=== PATIENT | female | born 1935 | race Caucasian/White ===

== ENCOUNTER 2022-06-19 13:25 | Inpatient (IN) ==
--- NOTE | 2022-06-19 15:10 | XRay Report ---
HISTORY: Short of breath, hypoxia FINDINGS: There are subtle alveolar opacities in both lung bases. These are new since 01/22/22. Mid and upper lung busch are clear. There is no pleural effusion and no evidence of emphysema. The heart size and pulmonary vasculature are normal. IMPRESSION: Subtle bibasilar pneumonia Interpreted and Authenticated by: Yordan Bae 06/19/22
[2022-06-19] MEDS ORDERED: cefTRIAXone 1 GM VIAL IV ONE (15:12)
[2022-06-19 15:16] LABS: POC Calcium, Ionized 1.07 (1.16-1.32); POC Creatinine 1.3 (0.6-1.2)
--- NOTE | 2022-06-19 15:19 | Emergency Department Note ---
HPI General Chief complaint: Cold/Flu Symptoms Stated complaint: SOB Time Seen by Provider: 06/19/22 13:42 Source: patient Mode of arrival: wheelchair Limitations: no limitations History of Present Illness HPI Narrative: 87-year-old female with history of CAD, hypertension, hyperlipidemia, polymyalgia rheumatica patient presents to the ER with hypoxia satting 84% on room air and complaints of URI with cough that started on Lynne giuliano. The patient is not on oxygen at home. She is had poor oral intake and poor appetite since she got sick. She's has also had diarrhea that preceded her URI by about a week. She denies melena or hematochezia. She denies nausea and vomiting. Denies dysuria or hematuria. She denies increasing lower extremity swelling or unintentional weight gain. COVID and influenza swabs are negative today. Related Data Home Medications Medication Instructions Recorded Confirmed amlodipine 10 mg tablet 10 mg PO DAILY 05/31/15 06/05/22 aspirin 81 mg chewable tablet 81 mg PO DAILY 05/31/15 06/05/22 ascorbic acid (vitamin C) 500 mg 500 mg PO QDAY 06/23/15 06/05/22 tablet calcium carbonate 500 mg calcium 500 - 1,000 mg PO HSP PRN Heartburn 06/23/15 06/05/22 (1,250 mg) tablet cholecalciferol (vitamin D3) 25 1,000 unit PO QDAY 06/23/15 06/05/22 mcg (1,000 unit) capsule cyanocobalamin (vitamin B-12) 500 500 mcg PO QDAY 06/23/15 06/05/22 mcg tablet omega-3 fatty acids 1,000 mg 1,000 mg PO QDAY 06/23/15 06/05/22 capsule acetaminophen 650 mg 650 - 1,300 mg PO BIDP PRN Pain 12/31/17 06/05/22 tablet,extended release coenzyme Q10 100 mg capsule 100 mg PO DAILY 12/31/17 06/05/22 pravastatin 10 mg tablet 10 mg PO HS 12/31/17 06/05/22 atenolol 25 mg tablet 25 mg PO QDAY 12/02/18 06/05/22 spironolactone 25 mg tablet 25 mg PO QDAY 07/26/20 06/05/22 Previous Rx's Medication Instructions Recorded folic acid 1 mg tablet 1 mg PO QDAY #30 tabs 12/02/18 hydrocodone 7.5 mg-acetaminophen 1 tab PO BID PRN pain #60 tabs 06/06/22 325 mg tablet Allergies Allergy/AdvReac Type Severity Reaction Status Date / Time Doxepin Allergy Severe Swelling Verified 06/19/22 13:32 of Lip/Tongue/Throat Quinolones Allergy Unknown UNKNOWN Verified 06/19/22 13:32 morphine AdvReac Mild Vomiting Verified 06/19/22 13:32 Warfarin [From COUMADIN] AdvReac Mild Nausea Verified 06/19/22 13:32 ADHESIVES Allergy Mild RASH Uncoded 06/05/22 13:36 Review of Systems ROS ROS Narrative: Narrative: All systems ED: reviewed and negative except as stated. [facility] Narrative Patient History Narrative: Narrative: Medical/Surgical/Family History All Active Problems (Updated 06/19/22 @ 16:59 by Lulú Vega PA-C) Cellulitis (Chronic) Abnormal weight loss (Chronic) Anemia (Acute) Arthritis (Chronic) Benign essential hypertension (Chronic) Disorder of bone (Chronic) Disorder of cartilage (Chronic) CAD (coronary artery disease) (Chronic) Changes in skin texture (Chronic) Costalchondritis (Chronic) Difficulty swallowing (Chronic) Dysmetabolic syndrome X (Chronic) Dyspepsia (Chronic) Edema (Chronic) Elevated fasting glucose (Chronic) Long-term use of high-risk medication (Chronic) Enthesopathy (Chronic) Epigastric pain (Chronic) Fatigue (Chronic) Hyperlipidemia (Chronic) Pain of left leg (Chronic) Left wrist sprain (Chronic) Nontoxic multinodular goiter (Chronic) Polymyalgia rheumatica (Chronic) Pyuria (Chronic) Steroid long-term use (Chronic) Varicose veins of legs (Chronic) Visit for screening mammogram (Chronic) Inflammatory arthritis (Chronic) Dactylitis (Chronic) Encounter for long-term (current) use of other high-risk medications (Chronic) Encounter for long-term current use of other high-risk medications (Chronic) 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) Elevated rheumatoid factor (Acute) Trigger middle finger of right hand (Acute) Polyarthralgia (Chronic) Right shoulder pain (Acute) Sinusitis, acute (Acute) Chronic sacroiliac joint pain (Chronic) Sacroiliitis, not elsewhere classified (Chronic) Radiculopathy, lumbar region (Chronic) Other spondylosis with radiculopathy, lumbar region (Chronic) Heart disease (Chronic) HTN (hypertension) (Chronic) Left shoulder pain (Chronic) Low back pain (Acute) Chronic right SI joint pain (Acute) Community acquired pneumonia (Acute) Acute respiratory insufficiency (Acute) Medical History Abnormal weight loss Anemia Arthritis Benign essential hypertension CAD (coronary artery disease) Cellulitis Changes in skin texture Chronic right SI joint pain Chronic sacroiliac joint pain Costalchondritis Dactylitis Difficulty swallowing Disorder of bone Disorder of cartilage Dysmetabolic syndrome X Dyspepsia Edema Elevated fasting glucose Elevated rheumatoid factor Encounter for long-term (current) use of other high-risk medications Encounter for long-term current use of other high-risk medications Enthesopathy Epigastric pain Fatigue Heart disease HTN (hypertension) Human leukocyte antigen B27 positive Hyperlipidemia Inflammatory arthritis Left shoulder pain Left wrist sprain Long-term use of high-risk medication Low back pain Nontoxic multinodular goiter Other spondylosis with radiculopathy, lumbar region Pain of left leg Polyarthralgia Polymyalgia rheumatica Pyuria Radiculopathy, lumbar region Right shoulder pain Sacroiliitis, not elsewhere classified Spondyloarthropathy Steroid long-term use Trigger middle finger of right hand Varicose veins of legs Visit for screening mammogram Surgical History History of surgery 09/09 SI Joint Injection, left w/o sed 09/04/1809/09 Shoulder Joint Injection, rt w/o sed 09/04/1807/12 LESI #1 L4-5 w/o sed 07/08/1810/07 LESI #1 L4-5 w/o sed 10/11/1507/08 SI Joint Injection, Bilat w/o sed 07/22/201404/06 SI Joint Injection, Bilat w/o sed 03/30/201404/06 Knee Joint Injection, Left w/o sed 03/30/201412/05 Knee Joint Injection, Left w/o sed 12/01/201312/05 SI Joint Injection, Bilat w/o sed 12/01/201310/05 Knee Joint Injection, left w/o sed 09/28/201310/05 SI Joint Injection bilat w/o sed 09/28/201310/04 SI Joint Injection - Bilateral w/o sed 10/15/201210/04 Knee Joint Injection w/o sed 09/29/1210/04 SI Joint Injection Bilat w/o sed 09/29/1212/03 Knee Joint Injection Left w/o sed 11-28-1112/03 SI Joint Injection Left w/o sed 11-28-1101/01 Facet injection, Left side L4-5 and L5-S1 w/out sed 01/11/1101/01 SI Joint Injection-left 12/28/10 w/o sed Social History Smoking Status: Never smoker Alcohol Intake Frequency: does not drink Substance Use: does not use Exam Narrative Narrative: General: AOx3, NAD, nontoxic appearing. Pleasant and conversant. HEENT: PERRL, EOMI, normocephalic. Moist mucous membranes. Normal facies and normal dentition. Chest: Symmetric, no pain to palpation Respiratory: Bilateral coarse crackles at the bases. No respiratory distress. Unlabored breathing. Audible cough. Heart: Regular rate and rhythm, no murmurs/clicks/rubs. Abdomen: Non-tender, Non distended, normal bowel tones. No organomegaly. Extremities: Warm and well perfused. No edema. DP 2+ bilaterally. No venous stasis. Neuro: No focal deficits. Cranial nerves II-XII grossly normal. Skin: Warm dry, no rashes or lesions, no cyanosis. Psych: Normal mood and affect Heme/Lymph: No abnormal bruising General Limitations: no limitations Course Course Course Narrative: 87-year-old female presents the ER with hypoxia and URI with cough Reevaluation(s) Reevaluation #1: COVID and influenza swabs are negative, check chest x-ray Obtain IV access and plan to start ceftriaxone/azithromycin if chest x-ray significant for pneumonia Obtain basic lab Reevaluation #2: CBC with white blood cell count of 15,600 with left shift Chemistry with hyponatremia sodium of 131, creatinine is 1.3 with a BUN 30 BNP is 1600 Vital Signs Vital signs: Vital Signs Temperature 97.1 F 06/19/22 13:28 Pulse Rate 69 06/19/22 13:28 Respiratory Rate 22 06/19/22 13:28 Blood Pressure 112/56 06/19/22 13:28 Pulse Oximetry (%) 85 L 06/19/22 13:28 Oxygen Delivery Method 06/19/22 13:28 Temperature 97.1 F 06/19/22 13:28 Pulse Rate 66 06/19/22 16:31 Respiratory Rate 22 06/19/22 13:28 Blood Pressure 125/53 06/19/22 16:31 Pulse Oximetry (%) 95 06/19/22 16:31 Oxygen Delivery Method 06/19/22 16:31 Oxygen Flow Rate (L/min) 2 06/19/22 16:31 MDM MDM Narrative Medical decision making narrative: Community-acquired pneumonia Hypoxic respiratory insufficiency IV ceftriaxone and oral 500 mg azithromycin has been started. Patient will need admission and she has been accepted by the hospitalist. Please see his note for further details. Lab Data Result diagrams: 06/19/22 15:24 Labs: Lab Results 06/19/22 06/19/22 06/19/22 Range/Units 15:13 15:24 15:24 WBC 15.6 H (4.5-11.0) K/mcL RBC 3.63 (3.59-5.38) M/mcL Hgb 10.7 L (11.2-15.7) g/dL Hct 33.1 L (34.1-44.9) % POC Hct 32.0 L (36-48) MCV 91.2 (80.0-100.0) fL MCH 29.5 (26.0-34.0) pg MCHC 32.3 (31.0-36.0) g/dL RDW 13.8 (11.5-14.5) % Plt Count 132 L (140-440) K/mcL MPV 10.7 (8.8-12.5) fL Immature Gran % (Auto) 0.6 H (0.0-0.5) % Neut % (Auto) 70.9 (38.0-78.0) % Lymph % (Auto) 20.8 (15.5-49.0) % [place] % (Auto) 7.6 (1.0-12.0) % Eos % (Auto) 0 (0.0-7.0) % Baso % (Auto) 0.1 (0.0-2.0) % Lymph # (Auto) 3.25 (1.50-4.80) K/mcL [place] # (Auto) 1.18 H (0.10-0.90) K/mcL Eos # (Auto) 0 (0.00-0.70) K/mcL Baso # (Auto) 0.02 (0.00-0.30) K/mcL Immature Gran # 0.10 H (0.00-0.05) K/mcl Absolute Neutrophils 11.04 H (1.80-8.00) K/mcL POC Sodium 131 L (133-145) POC Potassium 4.0 (3.3-5.1) POC Chloride 97 (96-108) POC Total CO2 27.0 (22-30) POC BUN 30 H (6-20) POC Creatinine 1.3 H (0.6-1.2) POC Glucose 93 (70-105) POC WB Ioniz Calcium 1.07 L (1.16-1.32) NT-Pro-B Natriuret Pep 1600.0 H (<450.0) pg/mL ED POC Tests ED POC Tests: SANAZ - Influenza A Negative SANAZ - Influenza B Negative SANAZ - SARS Antigen Negative Discharge Plan Patient/Caregiver Discharge Instructions Pt seen by PERSONNEL SCHEDULER/PA only: Yes Clinical Impression: Community acquired pneumonia, Acute respiratory insufficiency Patient Disposition: Xfer As Inpt ([facility] Follow up with: Patricia Marie DNP [Primary Care Provider] - Prescriptions: No Action omega-3 fatty acids 1,000 mg capsule 1,000 mg PO QDAY Label Comments: HOLDING FOR SURGERY cyanocobalamin (vitamin B-12) 500 mcg tablet 500 mcg PO QDAY calcium carbonate 500 mg calcium (1,250 mg) tablet 500 - 1,000 mg PO HSP PRN (Reason: Heartburn) ascorbic acid (vitamin C) 500 mg tablet 500 mg PO QDAY cholecalciferol (vitamin D3) 1,000 unit capsule 1,000 unit PO QDAY atenolol 25 mg tablet 25 mg PO QDAY folic acid 1 mg tablet 1 mg PO QDAY Qty: 30 2RF Rx Instructions: Take 1 tablet daily spironolactone 25 mg tablet 25 mg PO QDAY hydrocodone-acetaminophen 7.5-325 mg tablet 1 tab PO BID PRN (Reason: pain) Qty: 60 0RF amlodipine 10 MG tablet 10 mg PO DAILY aspirin 81 MG tablet,chewable 81 mg PO DAILY Label Comments: HOLDING FOR SURGERY pravastatin 10 MG tablet 10 mg PO HS acetaminophen 650 MG tablet extended release 650 - 1,300 mg PO BIDP PRN (Reason: Pain) coenzyme Q10 100 MG capsule 100 mg PO DAILY Label Comments: HOLDING FOR SURGERY
[2022-06-19] MEDS ORDERED: AZITHROMYCIN 250 MG TABLET PO ONE (15:27)
[2022-06-19 16:08] LABS: Basophils # (Auto) 0.02 K/mcL (0.00-0.30); Basophils % (Auto) 0.1 % (0.0-2.0); Eosinophils # (Auto) 0 K/mcL (0.00-0.70); Eosinophils % (Auto) 0 % (0.0-7.0); Hematocrit 33.1 % (34.1-44.9); Hemoglobin 10.7 g/dL (11.2-15.7); Lymphocytes # (Auto) 3.25 K/mcL (1.50-4.80); Lymphocytes % (Auto) 20.8 % (15.5-49.0); Mean Cell Volume 91.2 fL (80.0-100.0); Mean Corpuscular HGB Conc 32.3 g/dL (31.0-36.0); Mean Platelet Volume 10.7 fL (8.8-12.5); Monocytes # (Auto) 1.18 K/mcL (0.10-0.90); Monocytes % (Auto) 7.6 % (1.0-12.0); Neutrophils % (Auto) 70.9 % (38.0-78.0); Platelet Count 132 K/mcL (140-440); RBC 3.63 M/mcL (3.59-5.38); Red Cell Distribution Width 13.8 % (11.5-14.5); WBC 15.6 K/mcL (4.5-11.0)
--- NOTE | 2022-06-19 16:41 | Internal Med History&Physical ---
HPI History of Present Illness Patient information: Note initiated : 06/19/22 at 4:37 pm Service Date, if different from initiated Date: [] Patient: Manuela Bower 87 y/o F admitted on for Shortness of breath. Chief Complaint: [] Chief complaint: cough History of present illness: Ms. Bower is a 87 year old F PMH, ARthritis, on remicaide presents to the ER for evaluation of cough Pt has been having cough x 5-6 days, dry, progressively getting wrose, associated with subjective sensation of chills, she had malaise and diarrhea associated with these symptoms. Her symptoms have progressively gotten worse hence she came to the ER for furtehr eval ON arrival to the ER she is hemodynamically stable, but needs 2 L oxygen to keep sat > 90, labs show leucocytosis and creat of 1.3, X ray confimrs pna, covid/flu is negative. patient is going to be admitted to the hospital for further management. Review of Systems Review of systems: CONSTITUTIONAL: No weight loss, fever, present chills, weakness or fatigue. HEENT: Eyes: No visual loss, blurred vision, double vision or yellow sclerae. Ears, Nose, Throat: No hearing loss, sneezing, congestion, runny nose or sore throat. SKIN: No rash or itching. CARDIOVASCULAR: No chest pain, chest pressure or chest discomfort. No palpitations or edema. RESPIRATORY: present cough, shortness of breath GASTROINTESTINAL: No nausea, vomiting or or constipation. No abdominal pain or blood in stools No Janet. had diarrhea, which is now resolved GENITOURINARY: Denies Burning on urination. Blood in urine, or foul smelling urine NEUROLOGICAL: No headache, dizziness, syncope, paralysis, tremors, numbness or tingling in the extremities. No change in bowel or bladder control. MUSCULOSKELETAL: No muscle, back pain, joint pain or stiffness. HEMATOLOGIC: No bleeding or bruising. No enlarged nodes PSYCHIATRIC: No depression or anxiety. ENDOCRINOLOGIC: No reports of sweating, cold or heat intolerance. No polyuria or polydipsia. ALLERGIES: No hives, eczema or rhinitis. Skin: No rash, no jaundice, cyanosis or pallor. PFSH PFSH All Active Problems Cellulitis (Chronic) Abnormal weight loss (Chronic) Anemia (Acute) Arthritis (Chronic) Benign essential hypertension (Chronic) Disorder of bone (Chronic) Disorder of cartilage (Chronic) CAD (coronary artery disease) (Chronic) Changes in skin texture (Chronic) Costalchondritis (Chronic) Difficulty swallowing (Chronic) Dysmetabolic syndrome X (Chronic) Dyspepsia (Chronic) Edema (Chronic) Elevated fasting glucose (Chronic) Long-term use of high-risk medication (Chronic) Enthesopathy (Chronic) Epigastric pain (Chronic) Fatigue (Chronic) Hyperlipidemia (Chronic) Pain of left leg (Chronic) Left wrist sprain (Chronic) Nontoxic multinodular goiter (Chronic) Polymyalgia rheumatica (Chronic) Pyuria (Chronic) Steroid long-term use (Chronic) Varicose veins of legs (Chronic) Visit for screening mammogram (Chronic) Inflammatory arthritis (Chronic) Dactylitis (Chronic) Encounter for long-term (current) use of other high-risk medications (Chronic) Encounter for long-term current use of other high-risk medications (Chronic) 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) Elevated rheumatoid factor (Acute) Trigger middle finger of right hand (Acute) Polyarthralgia (Chronic) Right shoulder pain (Acute) Sinusitis, acute (Acute) Chronic sacroiliac joint pain (Chronic) Sacroiliitis, not elsewhere classified (Chronic) Radiculopathy, lumbar region (Chronic) Other spondylosis with radiculopathy, lumbar region (Chronic) Heart disease (Chronic) HTN (hypertension) (Chronic) Left shoulder pain (Chronic) Low back pain (Acute) Chronic right SI joint pain (Acute) Medical History Abnormal weight loss Anemia Arthritis Benign essential hypertension CAD (coronary artery disease) Cellulitis Changes in skin texture Chronic right SI joint pain Chronic sacroiliac joint pain Costalchondritis Dactylitis Difficulty swallowing Disorder of bone Disorder of cartilage Dysmetabolic syndrome X Dyspepsia Edema Elevated fasting glucose Elevated rheumatoid factor Encounter for long-term (current) use of other high-risk medications Encounter for long-term current use of other high-risk medications Enthesopathy Epigastric pain Fatigue Heart disease HTN (hypertension) Human leukocyte antigen B27 positive Hyperlipidemia Inflammatory arthritis Left shoulder pain Left wrist sprain Long-term use of high-risk medication Low back pain Nontoxic multinodular goiter Other spondylosis with radiculopathy, lumbar region Pain of left leg Polyarthralgia Polymyalgia rheumatica Pyuria Radiculopathy, lumbar region Right shoulder pain Sacroiliitis, not elsewhere classified Spondyloarthropathy Steroid long-term use Trigger middle finger of right hand Varicose veins of legs Visit for screening mammogram Surgical History History of surgery 09/09 SI Joint Injection, left w/o sed 09/04/1809/09 Shoulder Joint Injection, rt w/o sed 09/04/1807/12 LESI #1 L4-5 w/o sed 07/08/1810/07 LESI #1 L4-5 w/o sed 10/11/1507/08 SI Joint Injection, Bilat w/o sed 07/22/201404/06 SI Joint Injection, Bilat w/o sed 03/30/201404/06 Knee Joint Injection, Left w/o sed 03/30/201412/05 Knee Joint Injection, Left w/o sed 12/01/201312/05 SI Joint Injection, Bilat w/o sed 12/01/201310/05 Knee Joint Injection, left w/o sed 09/28/201310/05 SI Joint Injection bilat w/o sed 09/28/201310/04 SI Joint Injection - Bilateral w/o sed 10/15/201210/04 Knee Joint Injection w/o sed 09/29/1210/04 SI Joint Injection Bilat w/o sed 09/29/1212/03 Knee Joint Injection Left w/o sed 11-28-1112/03 SI Joint Injection Left w/o sed 11-28-1101/01 Facet injection, Left side L4-5 and L5-S1 w/out sed 01/11/1101/01 SI Joint Injection-left 12/28/10 w/o sed Social History household members: alone housing: house lives independently: Yes occupational status: retired smoking status: Never smoker alcohol intake frequency: does not drink substance use type: does not use MEDS/ALLERGIES Home Medications and Allergies Home Medications Medication Instructions Recorded Confirmed Type amlodipine 10 mg tablet 10 mg PO DAILY 05/31/15 06/05/22 History aspirin 81 mg chewable tablet 81 mg PO DAILY 05/31/15 06/05/22 History ascorbic acid (vitamin C) 500 mg 500 mg PO QDAY 06/23/15 06/05/22 History tablet calcium carbonate 500 mg calcium 500 - 1,000 mg PO HSP PRN Heartburn 06/23/15 06/05/22 History (1,250 mg) tablet cholecalciferol (vitamin D3) 25 1,000 unit PO QDAY 06/23/15 06/05/22 History mcg (1,000 unit) capsule cyanocobalamin (vitamin B-12) 500 500 mcg PO QDAY 06/23/15 06/05/22 History mcg tablet omega-3 fatty acids 1,000 mg 1,000 mg PO QDAY 06/23/15 06/05/22 History capsule acetaminophen 650 mg 650 - 1,300 mg PO BIDP PRN Pain 12/31/17 06/05/22 History tablet,extended release coenzyme Q10 100 mg capsule 100 mg PO DAILY 12/31/17 06/05/22 History pravastatin 10 mg tablet 10 mg PO HS 12/31/17 06/05/22 History atenolol 25 mg tablet 25 mg PO QDAY 12/02/18 06/05/22 History folic acid 1 mg tablet 1 mg PO QDAY #30 tabs 12/02/18 06/05/22 Rx spironolactone 25 mg tablet 25 mg PO QDAY 07/26/20 06/05/22 History hydrocodone 7.5 mg-acetaminophen 1 tab PO BID PRN pain #60 tabs 06/06/22 06/06/22 Rx 325 mg tablet Allergies Allergy/AdvReac Type Severity Reaction Status Date / Time Doxepin Allergy Severe Swelling Verified 06/19/22 13:32 of Lip/Tongue/Throat Quinolones Allergy Unknown UNKNOWN Verified 06/19/22 13:32 morphine AdvReac Mild Vomiting Verified 06/19/22 13:32 Warfarin [From COUMADIN] AdvReac Mild Nausea Verified 06/19/22 13:32 ADHESIVES Allergy Mild RASH Uncoded 06/05/22 13:36 EXAM Constitutional Vitals: Temp Pulse Resp BP Pulse Ox O2 Del Method O2 Flow Rate 97.1 F 66 22 125/53 95 2 12/27/22 13:28 06/19/22 16:31 06/19/22 13:28 06/19/22 16:31 06/19/22 16:31 06/19/22 16:31 06/19/22 16:31 Exam: GENERAL: The patient is a well-developed, well-nourished in no apparent distress. Is alert and oriented x3. VITAL SIGNS: Reviewed and as noted elsewhere. HEENT: Head is normocephalic and atraumatic. Extraocular muscles are intact. Pu pils are equal, round, and reactive to light. Nares appeared normal. Mouth appears any without lesions. Mucous membranes are dry hard of hearing NECK: Normal to inspection, Supple, No lymphadenopathy or thyromegaly. LUNGS: Air entry equal on both sides, no wheezing, crackles or rhonchi noted. No accessory muscles of respiration HEART: Regular rate and rhythm normal, S1 and S2 heard, no Gallop, S3 or Rub Noted, No Gross murmur heard. ABDOMEN: Soft, nontender, and nondistended. Positive bowel sounds. No hepatosplenomegaly was noted. EXTREMITIES: No cyanosis, clubbing, rash, lesions or edema. NEUROLOGIC: Cranial nerves II through XII are grossly intact. Motor and Sensory System Grossly Intact PSYCHIATRIC: Normal affect, Normal Mood. Appropriate Behavior. SKIN: No ulceration or wounds noted, No jaundice, No rash noted. DATA Data Completed and Pending Labs: Labs from last 24 hours 06/19/22 06/19/22 06/19/22 15:24 15:24 15:13 WBC 15.6 H RBC 3.63 Hgb 10.7 L Hct 33.1 L POC Hct 32.0 L MCV 91.2 MCH 29.5 MCHC 32.3 RDW 13.8 Plt Count 132 L MPV 10.7 Immature Gran % (Auto) 0.6 H Neut % (Auto) 70.9 Lymph % (Auto) 20.8 [place] % (Auto) 7.6 Eos % (Auto) 0 Baso % (Auto) 0.1 Lymph # (Auto) 3.25 [place] # (Auto) 1.18 H Eos # (Auto) 0 Baso # (Auto) 0.02 Immature Gran # 0.10 H Absolute Neutrophils 11.04 H POC Sodium 131 L POC Potassium 4.0 POC Chloride 97 POC Total CO2 27.0 POC BUN 30 H POC Creatinine 1.3 H POC Glucose 93 POC WB Ioniz Calcium 1.07 L NT-Pro-B Natriuret Pep 1600.0 H A/P Narrative A/P Narrative: A?P Acute hypoxic Respiratory failure Community acquired pneumonia Immunocompromised status -Admit to med surg -oxygen supplement to keep osat > 90 -IV rocehpin/doxycyline -wean down oxygen as tolerated HLD -resume home med CKD st age 2, creat midly worse, but not meeting criteria for GAIL -hold aldactone, -IV fluids -resume other bp meds -monitor daily renal function HTN -bp stable, continue home meds, (except aldactone) Chr opiate dependence -On hydrocodone, use oxycodone while inpatient Time Spent With Patient Time: Total time spent is greater than 50% in coordination of care (as documented) at patient's floor/unit and/or counseling patient:
[2022-06-19] MEDS ORDERED: MAGNESIUM HYDROXIDE 30 ML ORAL.SUSP PO PRN (18:02)
[2022-06-19] MEDS ORDERED: NALOXONE HCL 0.4 MG/ML VIAL IV PRN (18:02)
[2022-06-19] MEDS ORDERED: BISACODYL 10 MG SUPP.RECT PR PRN (18:02)
[2022-06-19] MEDS ORDERED: ALBUTEROL SULFATE 2.5 MG/3 ML NEBULIZER NEB PRN (18:02)
[2022-06-19] MEDS ORDERED: ONDANSETRON 4 MG/2 ML VIAL IV PRN (18:02)
[2022-06-19] MEDS ORDERED: ACETAMINOPHEN 325 MG TABLET PO PRN (18:02)
[2022-06-19] MEDS ORDERED: HYDROmorphone 0.5 MG/0.5 ML SYRINGE IV PRN (18:02)
[2022-06-19] MEDS ORDERED: oxyCODONE HCL 5 MG TABLET PO PRN (18:02)
[2022-06-19] MEDS ORDERED: traZODone HCL 50 MG TABLET PO PRN (18:02)
[2022-06-19] MEDS: 0.9 % SODIUM CHLORIDE 1,000 ML IV SCH (19:36)
[2022-06-19] MEDS: DOXYCYCLINE 100 MG in DEXTROSE 5% IN WATER 100 ML IV SCH (20:30)
[2022-06-19] MEDS: 0.9 % SODIUM CHLORIDE 10 ML SYRINGE IV SCH (20:31)
[2022-06-19] MEDS: DOCUSATE SODIUM 100 MG CAPSULE PO SCH (21:47)
[2022-06-19] MEDS: SENNOSIDES 1 TABLET PO SCH (21:47)
[2022-06-19] MEDS: SIMVASTATIN 10 MG TABLET PO SCH (21:48)
[2022-06-20] MEDS: 0.9 % SODIUM CHLORIDE 10 ML SYRINGE IV SCH ×3 (05:19→20:41)
[2022-06-20 06:21] LABS: Basophils # (Auto) 0.01 K/mcL (0.00-0.30); Basophils % (Auto) 0.1 % (0.0-2.0); Eosinophils # (Auto) 0.01 K/mcL (0.00-0.70); Eosinophils % (Auto) 0.1 % (0.0-7.0); Hematocrit 31.2 % (34.1-44.9); Hemoglobin 10.1 g/dL (11.2-15.7); Lymphocytes # (Auto) 2.47 K/mcL (1.50-4.80); Lymphocytes % (Auto) 20.2 % (15.5-49.0); Mean Cell Volume 92.9 fL (80.0-100.0); Mean Corpuscular HGB Conc 32.4 g/dL (31.0-36.0); Mean Platelet Volume 10.7 fL (8.8-12.5); Monocytes # (Auto) 1.08 K/mcL (0.10-0.90); Monocytes % (Auto) 8.8 % (1.0-12.0); Neutrophils % (Auto) 70.2 % (38.0-78.0); Platelet Count 123 K/mcL (140-440); RBC 3.36 M/mcL (3.59-5.38); Red Cell Distribution Width 13.9 % (11.5-14.5); WBC 12.3 K/mcL (4.5-11.0)
[2022-06-20 06:47] LABS: ALT/SGPT 12 U/L (<40); AST/SGOT 16 U/L (<32); Albumin 2.8 gm/dL (3.2-5.2); Alkaline Phosphatase 53 U/L (39-117); Bilirubin,Direct 0.2 mg/dL (<0.3); Bilirubin,Total 0.7 mg/dL (0.1-1.0); Blood Urea Nitrogen 26 mg/dL (8-23); Calcium 8.3 mg/dL (8.6-10.4); Carbon Dioxide 28 mmol/L (22-30); Chloride 102 mmol/L (96-108); Globulin 2.9 gm/dL (2.2-3.7); Glomerular Filtration Rate 50; Glucose 102 mg/dL (70-105); Lactate Dehydrogenase 178 U/L (135-225); Phosphorous 2.6 mg/dL (2.5-4.5); Triglycerides 95 mg/dL (<150); Uric Acid 6.6 mg/dL (2.5-8.0)
[2022-06-20] MEDS ORDERED: AZITHROMYCIN 250 MG TABLET PO SCH (09:00)
[2022-06-20] MEDS: 0.9 % SODIUM CHLORIDE 1,000 ML IV SCH ×2 (09:13→09:58)
[2022-06-20] MEDS: ASPIRIN 81 MG TAB.CHEW PO SCH (09:13)
[2022-06-20] MEDS: ATENOLOL 25 MG TABLET PO SCH (09:14)
[2022-06-20] MEDS: FOLIC ACID 1 MG TABLET PO SCH (09:14)
[2022-06-20] MEDS: VITAMIN D3 25 MCG TABLET PO SCH (09:14)
[2022-06-20] MEDS: amLODIPine 10 MG TABLET PO SCH (09:14)
[2022-06-20] MEDS: ENOXAPARIN 30 MG/0.3 ML SYRINGE SQ SCH (09:15)
[2022-06-20] MEDS: DOCUSATE SODIUM 100 MG CAPSULE PO SCH ×2 (09:15→20:53)
[2022-06-20] MEDS: cefTRIAXone 2 GM in DEXTROSE 5% IN WATER 50 ML IV SCH (09:48)
[2022-06-20] MEDS: DOXYCYCLINE 100 MG in DEXTROSE 5% IN WATER 100 ML IV SCH ×2 (10:55→20:54)
--- NOTE | 2022-06-20 14:45 | Internal Med Progress Note ---
SUBJECTIVE Subjective Patient information: Note initiated : 06/20/22 at 2:40 pm Service Date, if different from initiated Date: [] Patient: Manuela Bower 87 y/o F admitted on 06/19/22 for Shortness of breath. Chief Complaint: [] Interval history: Pt seen examined nNo acute overnight events, Patient was on 3 L of oxygen this morning, however has been weaned off oxygen by afternoon at the time of my evaluation did not have any oxygen supplementation The patient admits to having some cough, now feels that she is able to bring up some sputum, her breathing is better Pertinent ROS: Denies headache, dizziness Denies chest pain, palpitations Denies Cough and shortness of breath is improving Denies abdominal pain, nausea or vomiting. Constitutional Vitals: Vital Signs Temp Pulse Resp BP Pulse Ox O2 Del Method O2 Flow Rate 98.4 F 65 13 138/58 94 3 06/20/22 12:00 06/20/22 12:00 06/20/22 08:00 06/20/22 12:00 06/20/22 12:00 06/20/22 12:00 06/20/22 12:00 Period Temp Pulse Resp BP Sys/Melendrez Pulse Ox O2 Del Method O2 Flow Rate Last 24 Hr 96.9 F-99.7 F 61-74 - 113-148/42-66 91-99 Nasal Cannula- Nasal Cannula 2-3 Intake and Output 06/20/22 06/20/22 06/20/22 03:59 11:59 19:59 Intake Total 100 1050 100 Output Total 800 300 500 Balance -700 750 -400 Intake & Output: Intake & Output 06/20/22 06/20/22 06/20/22 03:59 11:59 19:59 Intake Total 100 1050 100 Output Total 800 300 500 Balance -700 750 -400 Intake: IV 100 1050 100 Sodium Chloride 0.9% 1,000 ml @ 1000 75 mls/hr IV .[id number] [facility] Rx#: [id number] Vibramycin 100 mg In Dextrose 5 100 100 % in Water 100 ml @ 100 mls/hr IV Q12H [facility] Rx#:[id number] Rocephin 2 gm In Dextrose 5% in 50 Water 50 ml @ 100 mls/hr IV Q24H [facility] Rx#:[id number] Output: Void Amount 800 300 Urine/Stool Mix 500 Other: Urine Appearance Cloudy Urine Color Yellow [place] Urine Odor Strong Stool Size Moderate Small Stool Color Brown Brown Stool Consistency Formed # Bowel Movements 1 Exam: Constitutional; Afebrile, cooperative, alert, not in distress. Eyes- No icterus, , No periorbital swelling Ears- Ext ear normal, hearing hard to conversation. Neck- Midline trachea, supple Respiratory system: Air Entry equal on both sides, No crackles or wheezing, no rhonchi. CVS- Rate rhythm regular, S1,S2 heard, no gallop, no rub. Abdomen- Soft nontender abdomen, no organomegaly, no tenderness, no guarding or rigidity, FOOD SANITARIAN- AOOx3, moving all extremities, no gross focal deficit noted. OBJ DATA Labs CBC & Chem 7: 06/20/22 05:51 06/20/22 05:51 Labs: Abnormal Lab Results 06/20/22 06/20/22 06/19/22 05:51 05:51 15:24 WBC 12.3 H RBC 3.36 L Hgb 10.1 L Hct 31.2 L POC Hct Plt Count 123 L Immature Gran % (Auto) 0.6 H [place] # (Auto) 1.08 H Immature Gran # 0.07 H Absolute Neutrophils 8.61 H POC Sodium Anion Gap 5.0 L POC BUN BUN 26 H POC Creatinine Calcium 8.3 L POC WB Ioniz Calcium GGT 61 H NT-Pro-B Natriuret Pep 1600.0 H Total Protein 5.7 L Albumin 2.8 L 06/19/22 06/19/22 15:24 15:13 WBC 15.6 H RBC Hgb 10.7 L Hct 33.1 L POC Hct 32.0 L Plt Count 132 L Immature Gran % (Auto) 0.6 H [place] # (Auto) 1.18 H Immature Gran # 0.10 H Absolute Neutrophils 11.04 H POC Sodium 131 L Anion Gap POC BUN 30 H BUN POC Creatinine 1.3 H Calcium POC WB Ioniz Calcium 1.07 L GGT NT-Pro-B Natriuret Pep Total Protein Albumin Meds: Medications Acetaminophen (Acetaminophen 325 Mg Tablet) 650 mg PO Q6HP PRN; Protocol PRN Reason: Per Pain Protocol/Fever > 101 Albuterol Sulfate (Albuterol Sulfate 2.5 Mg/3 Ml Nebulizer) 2.5 mg NEB Q2HP PRN PRN Reason: Shortness Of Breath Amlodipine Besylate (Amlodipine 10 Mg Tablet) 10 mg PO DAILY [facility] Last Admin: 06/20/22 09:14 Dose: 10 mg Aspirin (Aspirin 81 Mg Tab.Chew) 81 mg PO DAILY [facility] Last Admin: 06/20/22 09:13 Dose: 81 mg Atenolol (Atenolol 25 Mg Tablet) 25 mg PO QDAY [facility] Last Admin: 06/20/22 09:14 Dose: 25 mg Bisacodyl (Bisacodyl 10 Mg Supp.Rect) 10 mg MA Q2-3DAYS PRN PRN Reason: Constipation Docusate Sodium (Docusate Sodium 100 Mg Capsule) 100 mg PO BID [facility] Last Admin: 06/20/22 09:15 Dose: 100 mg Enoxaparin Sodium (Enoxaparin 30 Mg/0.3 Ml Syringe) 30 mg SQ DAILY [facility] Last Admin: 06/20/22 09:15 Dose: 30 mg Folic Acid (Folic Acid 1 Mg Tablet) 1 mg PO QDAY [facility] Last Admin: 06/20/22 09:14 Dose: 1 mg Hydromorphone HCl (Hydromorphone 0.5 Mg/0.5 Ml Syringe) 0.5 mg IV Q2HP PRN; Protocol PRN Reason: Per Pain Protocol Sodium Chloride (Sodium Chloride 0.9%) 1,000 mls @ 75 mls/hr IV .[id number] [facility] Stop: 06/20/22 18:01 Last Admin: 06/20/22 09:58 Dose: 75 mls/hr Ceftriaxone Sodium 2 gm/ (Dextrose) 50 mls @ 100 mls/hr IV Q24H [facility]; Protocol Last Infusion: 06/20/22 10:24 Dose: Infused Doxycycline Hyclate 100 mg/ (Dextrose) 100 mls @ 100 mls/hr IV Q12H [facility]; Protocol Last Infusion: 06/20/22 12:21 Dose: Infused Magnesium Hydroxide (Magnesium Hydroxide 30 Ml Oral.Susp) 30 ml PO DAILYP PRN PRN Reason: Constipation Naloxone HCl (Naloxone Hcl 0.4 Mg/Ml Vial) 0.1 mg IV Q2MIN PRN PRN Reason: Opiate Reversal Ondansetron HCl (Ondansetron 4 Mg/2 Ml Vial) 4 mg IV Q6HP PRN PRN Reason: Nausea And Vomiting Oxycodone HCl (Oxycodone Hcl 5 Mg Tablet) 5 mg PO Q4HP PRN; Protocol PRN Reason: Per Pain Protocol Senna (Sennosides 1 Tablet) 2 tab PO HS [facility] Last Admin: 06/19/22 21:47 Dose: 2 tab Simvastatin (Simvastatin 10 Mg Tablet) 5 mg PO HS [facility] Last Admin: 06/19/22 21:48 Dose: 5 mg Sodium Chloride (0.9 % Sodium Chloride 10 Ml Syringe) 10 ml IV Q8 [facility] Last Admin: 06/20/22 14:34 Dose: Not Given Trazodone HCl (Trazodone Hcl 50 Mg Tablet) 50 mg PO HSP PRN PRN Reason: Insomnia Vitamin D (Vitamin D3 25 Mcg Tablet) 25 mcg PO DAILY [facility] Last Admin: 06/20/22 09:14 Dose: 25 mcg A/P Narrative A/P Narrative: A?P Acute hypoxic Respiratory failure Community acquired pneumonia Immunocompromised status Flu positive -Admit to med surg -oxygen supplement to keep osat > 90, pt doing much better this AM, on room air this afternoon. -IV rocehpin/doxycyline -wean down oxygen as tolerated -did not use tamiflu gien > 5 day of symptom onset. HLD -resume home med CKD st age 1, with GAIL -hold aldactone, -IV fluids -resume other bp meds -creat improved from 1.3 to 1.0 HTN -bp stable, continue home meds, (except aldactone) Chr opiate dependence -On hydrocodone, use oxycodone while inpatient Time Spent With Patient Time: Total time spent is greater than 50% in coordination of care (as documented) at patient's floor/unit and/or counseling patient:
[2022-06-20] MEDS: SENNOSIDES 1 TABLET PO SCH (20:53)
[2022-06-20] MEDS: SIMVASTATIN 10 MG TABLET PO SCH (20:53)
[2022-06-21] MEDS: 0.9 % SODIUM CHLORIDE 10 ML SYRINGE IV SCH ×3 (05:15→22:30)
[2022-06-21 06:37] LABS: Basophils # (Auto) 0.02 K/mcL (0.00-0.30); Basophils % (Auto) 0.2 % (0.0-2.0); Eosinophils # (Auto) 0.12 K/mcL (0.00-0.70); Eosinophils % (Auto) 1.2 % (0.0-7.0); Hematocrit 31.7 % (34.1-44.9); Hemoglobin 10.2 g/dL (11.2-15.7); Lymphocytes # (Auto) 2.38 K/mcL (1.50-4.80); Lymphocytes % (Auto) 23.9 % (15.5-49.0); Mean Cell Volume 91.4 fL (80.0-100.0); Mean Corpuscular HGB Conc 32.2 g/dL (31.0-36.0); Mean Platelet Volume 10.5 fL (8.8-12.5); Monocytes # (Auto) 0.86 K/mcL (0.10-0.90); Monocytes % (Auto) 8.6 % (1.0-12.0); Neutrophils % (Auto) 65.6 % (38.0-78.0); Platelet Count 146 K/mcL (140-440); RBC 3.47 M/mcL (3.59-5.38); Red Cell Distribution Width 13.3 % (11.5-14.5)
[2022-06-21 06:51] LABS: ALT/SGPT 15 U/L (<40); AST/SGOT 20 U/L (<32); Albumin 2.9 gm/dL (3.2-5.2); Albumin/Globulin Ratio 0.9 (1.0-2.3); Alkaline Phosphatase 54 U/L (39-117); Bilirubin,Direct < 0.2 mg/dL (0-0.3); Bilirubin,Total 0.5 mg/dL (0.1-1.0); Blood Urea Nitrogen 16 mg/dL (8-23); Calcium 8.7 mg/dL (8.6-10.4); Carbon Dioxide 25 mmol/L (22-30); Chloride 105 mmol/L (96-108); Globulin 3.1 gm/dL (2.2-3.7); Glomerular Filtration Rate 77; Glucose 105 mg/dL (70-105); Lactate Dehydrogenase 178 U/L (135-225); Triglycerides 104 mg/dL (<150); Uric Acid 4.6 mg/dL (2.5-8.0)
[2022-06-21] MEDS: cefTRIAXone 2 GM in DEXTROSE 5% IN WATER 50 ML IV SCH (08:15)
[2022-06-21] MEDS: VITAMIN D3 25 MCG TABLET PO SCH (08:25)
[2022-06-21] MEDS: FOLIC ACID 1 MG TABLET PO SCH (08:25)
[2022-06-21] MEDS: ASPIRIN 81 MG TAB.CHEW PO SCH (08:25)
[2022-06-21] MEDS: ENOXAPARIN 30 MG/0.3 ML SYRINGE SQ SCH (08:26)
[2022-06-21] MEDS: ATENOLOL 25 MG TABLET PO SCH (08:26)
[2022-06-21] MEDS: amLODIPine 10 MG TABLET PO SCH (08:26)
[2022-06-21] MEDS: DOCUSATE SODIUM 100 MG CAPSULE PO SCH ×2 (08:26→20:14)
--- NOTE | 2022-06-21 08:56 | Internal Med Progress Note ---
SUBJECTIVE Subjective Patient information: Note initiated : 06/21/22 at 8:55 am Service Date, if different from initiated Date: [] Patient: Manuela Bower 87 y/o F admitted on 06/19/22 for Shortness of breath. Chief Complaint: [] Interval history: Pt seen examined nNo acute overnight events, feels her brething is not at baseline, feels anxious about going home today, as she lives alone notes shortness of breath with activity Pertinent ROS: Denies headache, dizziness Denies chest pain, palpitations present cough and shortness of breath Denies abdominal pain, nausea or vomiting. Constitutional Vitals: Vital Signs Temp Pulse Resp BP Pulse Ox O2 Del Method O2 Flow Rate 98.6 F 81 20 128/61 93 3 06/21/22 07:34 06/21/22 07:34 06/21/22 03:12 06/21/22 07:34 06/21/22 07:34 06/21/22 07:34 06/20/22 12:00 Period Temp Pulse Resp BP Sys/Melendrez Pulse Ox O2 Del Method O2 Flow Rate Last 24 Hr 97.4 F-98.8 F 65-81 20-20 115-143/50-69 91-95 Nasal Cannula- Room Air 3-3 Intake and Output 06/20/22 06/21/22 06/21/22 19:59 03:59 11:59 Intake Total 937 1450 Output Total 900 1350 600 Balance 37 100 -600 Weight 62.369 kg 66.224 kg Intake & Output: Intake & Output 06/20/22 06/21/22 06/21/22 19:59 03:59 11:59 Intake Total 937 1450 Output Total 900 1350 600 Balance 37 100 -600 Weight 62.369 kg 66.224 kg Intake: Nourishment/Supplement quantity 200 (ml) IV 100 1100 Sodium Chloride 0.9% 1,000 ml @ 1000 75 mls/hr IV .[id number] [facility] Rx#: [id number] Vibramycin 100 mg In Dextrose 5 100 100 % in Water 100 ml @ 100 mls/hr IV Q12H [facility] Rx#:[id number] Oral 837 150 Output: Void Amount 200 Urine/Stool Mix 900 1150 600 Other: Meal Dinner Nourishment/Supplement Percent of Meal Consumed 100% Nourishment/Supplement name ensure enlive Urine Appearance Clear Urine Color Yellow Stool Size Small Stool Color Brown Stool Consistency Soft # Voids 1 # Bowel Movements 1 # of times incontinent of 1 Bowels Exam: Constitutional; Afebrile, cooperative, alert, not in distress. Eyes- No icterus, , No periorbital swelling Ears- Ext ear normal, hearing hard to conversation. Neck- Midline trachea, supple Respiratory system: Air Entry equal on both sides, tommie exp wheeze noted, CVS- Rate rhythm regular, S1,S2 heard, no gallop, no rub. Abdomen- Soft nontender abdomen, no organomegaly, no tenderness, no guarding or rigidity, RETORT LOADER- AOOx3, moving all extremities, no gross focal deficit noted. OBJ DATA Labs CBC & Chem 7: 06/21/22 05:55 06/21/22 05:54 Labs: Abnormal Lab Results 06/21/22 06/21/22 06/20/22 05:55 05:54 05:51 WBC RBC 3.47 L Hgb 10.2 L Hct 31.7 L POC Hct Plt Count Immature Gran % (Auto) [place] # (Auto) Immature Gran # Absolute Neutrophils POC Sodium Anion Gap 5.0 L POC BUN BUN 26 H POC Creatinine Calcium 8.3 L POC WB Ioniz Calcium Phosphorus 2.0 L GGT 60 H 61 H NT-Pro-B Natriuret Pep Total Protein 5.7 L Albumin 2.9 L 2.8 L Albumin/Globulin Ratio 0.9 L 06/20/22 06/19/22 06/19/22 05:51 15:24 15:24 WBC 12.3 H 15.6 H RBC 3.36 L Hgb 10.1 L 10.7 L Hct 31.2 L 33.1 L POC Hct Plt Count 123 L 132 L Immature Gran % (Auto) 0.6 H 0.6 H [place] # (Auto) 1.08 H 1.18 H Immature Gran # 0.07 H 0.10 H Absolute Neutrophils 8.61 H 11.04 H POC Sodium Anion Gap POC BUN BUN POC Creatinine Calcium POC WB Ioniz Calcium Phosphorus GGT NT-Pro-B Natriuret Pep 1600.0 H Total Protein Albumin Albumin/Globulin Ratio 06/19/22 15:13 WBC RBC Hgb Hct POC Hct 32.0 L Plt Count Immature Gran % (Auto) [place] # (Auto) Immature Gran # Absolute Neutrophils POC Sodium 131 L Anion Gap POC BUN 30 H BUN POC Creatinine 1.3 H Calcium POC WB Ioniz Calcium 1.07 L Phosphorus GGT NT-Pro-B Natriuret Pep Total Protein Albumin Albumin/Globulin Ratio Meds: Medications Acetaminophen (Acetaminophen 325 Mg Tablet) 650 mg PO Q6HP PRN; Protocol PRN Reason: Per Pain Protocol/Fever > 101 Albuterol Sulfate (Albuterol Sulfate 2.5 Mg/3 Ml Nebulizer) 2.5 mg NEB Q2HP PRN PRN Reason: Shortness Of Breath Albuterol/Ipratropium (Ipratropium/Albuterol 3 Ml Ampul.Neb) 3 ml NEB Q6HRT [facility] Amlodipine Besylate (Amlodipine 10 Mg Tablet) 10 mg PO DAILY [facility] Last Admin: 06/21/22 08:26 Dose: 10 mg Aspirin (Aspirin 81 Mg Tab.Chew) 81 mg PO DAILY [facility] Last Admin: 06/21/22 08:25 Dose: 81 mg Atenolol (Atenolol 25 Mg Tablet) 25 mg PO QDAY [facility] Last Admin: 06/21/22 08:26 Dose: 25 mg Bisacodyl (Bisacodyl 10 Mg Supp.Rect) 10 mg MS Q2-3DAYS PRN PRN Reason: Constipation Docusate Sodium (Docusate Sodium 100 Mg Capsule) 100 mg PO BID [facility] Last Admin: 06/21/22 08:26 Dose: 100 mg Enoxaparin Sodium (Enoxaparin 30 Mg/0.3 Ml Syringe) 30 mg SQ DAILY [facility] Last Admin: 06/21/22 08:26 Dose: 30 mg Folic Acid (Folic Acid 1 Mg Tablet) 1 mg PO QDAY [facility] Last Admin: 06/21/22 08:25 Dose: 1 mg Hydromorphone HCl (Hydromorphone 0.5 Mg/0.5 Ml Syringe) 0.5 mg IV Q2HP PRN; Protocol PRN Reason: Per Pain Protocol Ceftriaxone Sodium 2 gm/ (Dextrose) 50 mls @ 100 mls/hr IV Q24H [facility]; Protocol Last Admin: 06/21/22 08:15 Dose: 100 mls/hr Doxycycline Hyclate 100 mg/ (Dextrose) 100 mls @ 100 mls/hr IV Q12H [facility]; Protocol Last Infusion: 06/20/22 22:08 Dose: Infused Magnesium Hydroxide (Magnesium Hydroxide 30 Ml Oral.Susp) 30 ml PO DAILYP PRN PRN Reason: Constipation Naloxone HCl (Naloxone Hcl 0.4 Mg/Ml Vial) 0.1 mg IV Q2MIN PRN PRN Reason: Opiate Reversal Ondansetron HCl (Ondansetron 4 Mg/2 Ml Vial) 4 mg IV Q6HP PRN PRN Reason: Nausea And Vomiting Oxycodone HCl (Oxycodone Hcl 5 Mg Tablet) 5 mg PO Q4HP PRN; Protocol PRN Reason: Per Pain Protocol Senna (Sennosides 1 Tablet) 2 tab PO HS [facility] Last Admin: 06/20/22 20:53 Dose: 2 tab Simvastatin (Simvastatin 10 Mg Tablet) 5 mg PO HS [facility] Last Admin: 06/20/22 20:53 Dose: 5 mg Sodium Chloride (0.9 % Sodium Chloride 10 Ml Syringe) 10 ml IV Q8 [facility] Last Admin: 06/21/22 05:15 Dose: 10 ml Trazodone HCl (Trazodone Hcl 50 Mg Tablet) 50 mg PO HSP PRN PRN Reason: Insomnia Vitamin D (Vitamin D3 25 Mcg Tablet) 25 mcg PO DAILY [facility] Last Admin: 06/21/22 08:25 Dose: 25 mcg A/P Narrative A/P Narrative: A?P Acute hypoxic Respiratory failure Community acquired pneumonia Immunocompromised status Flu positive -Admit to med surg -oxygen supplement to keep osat > 90, , now on room air. -IV rocehpin/doxycyline -did not use tamiflu gien > 5 day of symptom onset. Reactive airway disease -start on bronchodilatores and see how she does, HLD -resume home med CKD st age 1, with GAIL -hold aldactone, -IV fluids -resume other bp meds -creat improved from 1.3 to 1.0 HTN -bp stable, continue home meds, (except aldactone) Chr opiate dependence -On hydrocodone, use oxycodone while inpatient Dispo : Home tomorrow once wheezing resolves, will get PT to evaluate if she needs home PT. Time Spent With Patient Time: Total time spent is greater than 50% in coordination of care (as documented) at patient's floor/unit and/or counseling patient:
[2022-06-21] MEDS: DOXYCYCLINE 100 MG in DEXTROSE 5% IN WATER 100 ML IV SCH ×2 (09:07→22:29)
[2022-06-21] MEDS: guaiFENesin/DEXTROMETHORPHAN ORAL SOL PO PRN ×2 (10:26→20:42)
[2022-06-21] MEDS: IPRATROPIUM/ALBUTEROL 3 ML AMPUL.NEB NEB SCH ×2 (14:10→19:44)
[2022-06-21] MEDS: SENNOSIDES 1 TABLET PO SCH (20:14)
[2022-06-21] MEDS: SIMVASTATIN 10 MG TABLET PO SCH (20:14)
[2022-06-22] MEDS: IPRATROPIUM/ALBUTEROL 3 ML AMPUL.NEB NEB SCH ×6 (00:06→23:38)
[2022-06-22] MEDS: 0.9 % SODIUM CHLORIDE 10 ML SYRINGE IV SCH ×3 (05:34→21:53)
[2022-06-22] MEDS: amLODIPine 10 MG TABLET PO SCH (08:09)
[2022-06-22] MEDS: ASPIRIN 81 MG TAB.CHEW PO SCH (08:09)
[2022-06-22] MEDS: cefTRIAXone 2 GM in DEXTROSE 5% IN WATER 50 ML IV SCH (08:10)
[2022-06-22] MEDS: ENOXAPARIN 30 MG/0.3 ML SYRINGE SQ SCH (08:10)
[2022-06-22] MEDS: VITAMIN D3 25 MCG TABLET PO SCH (08:10)
[2022-06-22] MEDS: DOCUSATE SODIUM 100 MG CAPSULE PO SCH ×2 (08:10→20:13)
[2022-06-22] MEDS: ATENOLOL 25 MG TABLET PO SCH (08:10)
[2022-06-22] MEDS: FOLIC ACID 1 MG TABLET PO SCH (08:10)
[2022-06-22] MEDS: predniSONE 20 MG TABLET PO SCH (08:51)
[2022-06-22] MEDS: OSELTAMIVIR PHOSPHATE 75 MG CAPSULE PO SCH ×2 (08:51→20:13)
[2022-06-22] MEDS: guaiFENesin/DEXTROMETHORPHAN ORAL SOL PO PRN (08:51)
[2022-06-22] MEDS: DOXYCYCLINE 100 MG in DEXTROSE 5% IN WATER 100 ML IV SCH (08:52)
--- NOTE | 2022-06-22 15:25 | Internal Med Progress Note ---
SUBJECTIVE Subjective Patient information: Note initiated : 06/22/22 at 3:22 pm Service Date, if different from initiated Date: [] Patient: Manuela Bower 87 y/o F admitted on 06/19/22 for Shortness of breath. Chief Complaint: [] Interval history: 06/22 Diffuse bilateral wheezing but respiratory status has improved since admission. On room air now. Added prednisone and Tamiflu. Physical exam Head: Atraumatic, normal inspection. Eyes: normal appearance, no scleral icterus. Neck: full ROM Respiratory: On room air, diffuse bilateral expiratory wheezing. Cardiovascular: normal rate and rhythm, S1, S2. GI/Abdominal: soft, nontender, no guarding. Extremities: full range of motion, nontender. Neurological: CN II-XII intact, intact motor, intact sensation. Psychiatric: normal mood. Skin: warm, normal color Constitutional Vitals: Vital Signs Temp Pulse Resp BP Pulse Ox O2 Del Method O2 Flow Rate 98.1 F 69 18 145/73 98 3 06/22/22 11:45 06/22/22 12:29 06/22/22 12:29 06/22/22 11:45 06/22/22 12:29 06/22/22 12:29 06/20/22 12:00 Period Temp Pulse Resp BP Sys/Melendrez Pulse Ox O2 Del Method O2 Flow Rate Last 24 Hr 97.7 F-98.6 F 63-81 06-14 124-150/54-74 94-98 Room Air-Room Air Intake and Output 06/22/22 06/22/22 06/22/22 03:59 11:59 19:59 Intake Total 1500 150 480 Output Total 800 500 Balance 700 150 -20 Weight 69.899 kg Intake & Output: Intake & Output 06/22/22 06/22/22 06/22/22 03:59 11:59 19:59 Intake Total 1500 150 480 Output Total 800 500 Balance 700 150 -20 Weight 69.899 kg Intake: IV 100 150 Vibramycin 100 mg In Dextrose 5 100 100 % in Water 100 ml @ 100 mls/hr IV Q12H [facility] Rx#:[id number] Rocephin 2 gm In Dextrose 5% in 50 Water 50 ml @ 100 mls/hr IV Q24H [facility] Rx#:[id number] Oral 1400 480 Output: Void Amount 800 500 Other: Meal Lunch Percent of Meal Consumed 100% Feeding Ability Independent Urine Appearance Clear Urine Color Yellow Yellow Urine Odor Normal Stool Size Smear OBJ DATA Labs CBC & Chem 7: 06/21/22 05:55 06/21/22 05:54 Labs: Abnormal Lab Results 06/21/22 06/21/22 06/20/22 05:55 05:54 05:51 WBC RBC 3.47 L Hgb 10.2 L Hct 31.7 L Plt Count Immature Gran % (Auto) [place] # (Auto) Immature Gran # Absolute Neutrophils Anion Gap 5.0 L BUN 26 H Calcium 8.3 L Phosphorus 2.0 L GGT 60 H 61 H NT-Pro-B Natriuret Pep Total Protein 5.7 L Albumin 2.9 L 2.8 L Albumin/Globulin Ratio 0.9 L 06/20/22 06/19/22 06/19/22 05:51 15:24 15:24 WBC 12.3 H 15.6 H RBC 3.36 L Hgb 10.1 L 10.7 L Hct 31.2 L 33.1 L Plt Count 123 L 132 L Immature Gran % (Auto) 0.6 H 0.6 H [place] # (Auto) 1.08 H 1.18 H Immature Gran # 0.07 H 0.10 H Absolute Neutrophils 8.61 H 11.04 H Anion Gap BUN Calcium Phosphorus GGT NT-Pro-B Natriuret Pep 1600.0 H Total Protein Albumin Albumin/Globulin Ratio Meds: Medications Acetaminophen (Acetaminophen 325 Mg Tablet) 650 mg PO Q6HP PRN; Protocol PRN Reason: Per Pain Protocol/Fever > 101 Albuterol Sulfate (Albuterol Sulfate 2.5 Mg/3 Ml Nebulizer) 2.5 mg NEB Q2HP PRN PRN Reason: Shortness Of Breath Albuterol/Ipratropium (Ipratropium/Albuterol 3 Ml Ampul.Neb) 3 ml NEB Q4HRT [facility] Last Admin: 06/22/22 12:28 Dose: 3 ml Amlodipine Besylate (Amlodipine 10 Mg Tablet) 10 mg PO DAILY [facility] Last Admin: 06/22/22 08:09 Dose: 10 mg Aspirin (Aspirin 81 Mg Tab.Chew) 81 mg PO DAILY [facility] Last Admin: 06/22/22 08:09 Dose: 81 mg Atenolol (Atenolol 25 Mg Tablet) 25 mg PO QDAY [facility] Last Admin: 06/22/22 08:10 Dose: 25 mg Bisacodyl (Bisacodyl 10 Mg Supp.Rect) 10 mg UT Q2-3DAYS PRN PRN Reason: Constipation Docusate Sodium (Docusate Sodium 100 Mg Capsule) 100 mg PO BID [facility] Last Admin: 06/22/22 08:10 Dose: 100 mg Doxycycline Hyclate (Doxycycline Hyclate 100 Mg Tablet.Orl) 100 mg PO BID [facility] Stop: 06/23/22 23:00 Enoxaparin Sodium (Enoxaparin 30 Mg/0.3 Ml Syringe) 30 mg SQ DAILY [facility] Last Admin: 06/22/22 08:10 Dose: 30 mg Folic Acid (Folic Acid 1 Mg Tablet) 1 mg PO QDAY [facility] Last Admin: 06/22/22 08:10 Dose: 1 mg Guaifenesin (Guaifenesin/Dextromethorphan Oral Ava) 5 ml PO Q4HP PRN PRN Reason: Cough Last Admin: 06/22/22 08:51 Dose: 5 ml Hydromorphone HCl (Hydromorphone 0.5 Mg/0.5 Ml Syringe) 0.5 mg IV Q2HP PRN; Protocol PRN Reason: Per Pain Protocol Magnesium Hydroxide (Magnesium Hydroxide 30 Ml Oral.Susp) 30 ml PO DAILYP PRN PRN Reason: Constipation Naloxone HCl (Naloxone Hcl 0.4 Mg/Ml Vial) 0.1 mg IV Q2MIN PRN PRN Reason: Opiate Reversal Ondansetron HCl (Ondansetron 4 Mg/2 Ml Vial) 4 mg IV Q6HP PRN PRN Reason: Nausea And Vomiting Oseltamivir Phosphate (Oseltamivir Phosphate 75 Mg Capsule) 75 mg PO BID [facility] Stop: 06/26/22 21:01 Last Admin: 06/22/22 08:51 Dose: 75 mg Oxycodone HCl (Oxycodone Hcl 5 Mg Tablet) 5 mg PO Q4HP PRN; Protocol PRN Reason: Per Pain Protocol Prednisone (Prednisone 20 Mg Tablet) 40 mg PO [facility] Stop: 06/27/22 07:59 Last Admin: 06/22/22 08:51 Dose: 40 mg Senna (Sennosides 1 Tablet) 2 tab PO [facility] Last Admin: 06/21/22 20:14 Dose: 2 tab Simvastatin (Simvastatin 10 Mg Tablet) 5 mg PO HS [facility] Last Admin: 06/21/22 20:14 Dose: 5 mg Sodium Chloride (0.9 % Sodium Chloride 10 Ml Syringe) 10 ml IV Q8 [facility] Last Admin: 06/22/22 12:05 Dose: 10 ml Trazodone HCl (Trazodone Hcl 50 Mg Tablet) 50 mg PO HSP PRN PRN Reason: Insomnia Vitamin D (Vitamin D3 25 Mcg Tablet) 25 mcg PO DAILY [facility] Last Admin: 06/22/22 08:10 Dose: 25 mcg A/P Narrative A/P Narrative: A?P Acute hypoxic Respiratory failure Community acquired pneumonia Immunocompromised status Flu positive -Admit to med surg -oxygen supplement to keep osat > 90, , now on room air. -IV rocehpin/doxycyline -Tamiflu. Reactive airway disease -Start prednisone 40 mg daily. -Continue bronchodilators. HLD -resume home med CKD st age 1, with GAIL -hold aldactone, -Off IV fluids. -resume other bp meds -creat improved from 1.3 to 1.0 HTN -bp stable, continue home meds, (except aldactone) Chr opiate dependence -On hydrocodone, use oxycodone while inpatient Dispo : Home tomorrow once wheezing resolves, will get PT to evaluate if she needs home PT. Time Spent With Patient Time: Total time spent is greater than 50% in coordination of care (as documented) at patient's floor/unit and/or counseling patient:
[2022-06-22] MEDS: SIMVASTATIN 10 MG TABLET PO SCH (20:13)
[2022-06-22] MEDS: DOXYCYCLINE HYCLATE 100 MG TABLET.ORL PO SCH (20:13)
[2022-06-22] MEDS: SENNOSIDES 1 TABLET PO SCH (20:13)
[2022-06-23] MEDS: IPRATROPIUM/ALBUTEROL 3 ML AMPUL.NEB NEB SCH ×6 (03:40→22:57)
[2022-06-23] MEDS: 0.9 % SODIUM CHLORIDE 10 ML SYRINGE IV SCH ×3 (05:48→20:27)
[2022-06-23] MEDS: predniSONE 20 MG TABLET PO SCH (08:22)
[2022-06-23] MEDS: DOCUSATE SODIUM 100 MG CAPSULE PO SCH ×2 (08:22→20:27)
[2022-06-23] MEDS: OSELTAMIVIR PHOSPHATE 75 MG CAPSULE PO SCH ×2 (08:22→20:27)
[2022-06-23] MEDS: VITAMIN D3 25 MCG TABLET PO SCH (08:22)
[2022-06-23] MEDS: amLODIPine 10 MG TABLET PO SCH (08:22)
[2022-06-23] MEDS: FOLIC ACID 1 MG TABLET PO SCH (08:22)
[2022-06-23] MEDS: ATENOLOL 25 MG TABLET PO SCH (08:22)
[2022-06-23] MEDS: ASPIRIN 81 MG TAB.CHEW PO SCH (08:22)
[2022-06-23] MEDS: CEFDINIR 300 MG CAPSULE PO SCH ×2 (08:23→20:26)
[2022-06-23] MEDS: ENOXAPARIN 30 MG/0.3 ML SYRINGE SQ SCH (08:23)
[2022-06-23] MEDS: DOXYCYCLINE HYCLATE 100 MG TABLET.ORL PO SCH ×2 (09:55→20:26)
[2022-06-23] MEDS: methylPREDNISolone SOD SUCC 125 MG/2 ML VIAL IV SCH ×2 (11:22→20:26)
[2022-06-23] MEDS: SPIRONOLACTONE 25 MG TABLET PO SCH (11:22)
[2022-06-23] MEDS: guaiFENesin/DEXTROMETHORPHAN ORAL SOL PO PRN (11:23)
[2022-06-23] MEDS ORDERED: methylPREDNISolone SOD SUCC 125 MG/2 ML VIAL IV ONE (14:00)
--- NOTE | 2022-06-23 14:54 | Internal Med Progress Note ---
SUBJECTIVE Subjective Patient information: Note initiated : 06/23/22 at 2:46 pm Service Date, if different from initiated Date: [] Patient: Manuela Bower 87 y/o F admitted on 06/19/22 for Shortness of breath. Chief Complaint: [] Interval history: 06/22 Diffuse bilateral wheezing but respiratory status has improved since admission. On room air now. Added prednisone and Tamiflu. 06/23 Respiratory symptoms have improved since yesterday, improvement in wheezing however the patient does not feel comfortable returning home yet. We will keep the patient until she feels comfortable returning home she will return home alone and does not have 24-hour support at the time being. Transition to Solu- Medrol IV, discontinued prednisone. Physical exam Head: Atraumatic, normal inspection. Eyes: normal appearance, no scleral icterus. Neck: full ROM Respiratory: On room air, improvement in diffuse bilateral expiratory wheezing. Cardiovascular: normal rate and rhythm, S1, S2. GI/Abdominal: soft, nontender, no guarding. Extremities: full range of motion, nontender. Neurological: CN II-XII intact, intact motor, intact sensation. Psychiatric: normal mood. Skin: warm, normal color Constitutional Vitals: Vital Signs Temp Pulse Resp BP Pulse Ox O2 Del Method O2 Flow Rate 98.4 F 81 16 146/79 95 3 06/23/22 11:02 06/23/22 11:29 06/23/22 11:29 06/23/22 11:02 06/23/22 11:29 06/23/22 11:29 06/20/22 12:00 Period Temp Pulse Resp BP Sys/Melendrez Pulse Ox O2 Del Method O2 Flow Rate Last 24 Hr 97.9 F-98.6 F 68-90 12-20 118-157/55-84 93-100 Room Air-Room Air Intake and Output 06/23/22 06/23/22 06/23/22 03:59 11:59 19:59 Intake Total 800 800 Output Total 1600 500 Balance -800 300 Weight 71.214 kg Intake & Output: Intake & Output 06/23/22 06/23/22 06/23/22 03:59 11:59 19:59 Intake Total 800 800 Output Total 1600 500 Balance -800 300 Weight 71.214 kg Intake: Oral 800 800 Output: Void Amount 1600 500 Other: Meal Breakfast Percent of Meal Consumed 100% Feeding Ability Independent Urine Appearance Clear Urine Color Yellow Yellow Urine Odor Normal Stool Size Smear Stool Consistency Liquid # Bowel Movements 3 OBJ DATA Labs CBC & Chem 7: 06/21/22 05:55 06/21/22 05:54 Labs: Abnormal Lab Results 06/21/22 06/21/22 05:55 05:54 RBC 3.47 L Hgb 10.2 L Hct 31.7 L Phosphorus 2.0 L GGT 60 H Albumin 2.9 L Albumin/Globulin Ratio 0.9 L Meds: Medications Acetaminophen (Acetaminophen 325 Mg Tablet) 650 mg PO Q6HP PRN; Protocol PRN Reason: Per Pain Protocol/Fever > 101 Albuterol Sulfate (Albuterol Sulfate 2.5 Mg/3 Ml Nebulizer) 2.5 mg NEB Q2HP PRN PRN Reason: Shortness Of Breath Albuterol/Ipratropium (Ipratropium/Albuterol 3 Ml Ampul.Neb) 3 ml NEB Q4HRT [facility] Last Admin: 06/23/22 11:29 Dose: 3 ml Amlodipine Besylate (Amlodipine 10 Mg Tablet) 10 mg PO DAILY [facility] Last Admin: 06/23/22 08:22 Dose: 10 mg Aspirin (Aspirin 81 Mg Tab.Chew) 81 mg PO DAILY [facility] Last Admin: 06/23/22 08:22 Dose: 81 mg Atenolol (Atenolol 25 Mg Tablet) 25 mg PO QDAY [facility] Last Admin: 06/23/22 08:22 Dose: 25 mg Bisacodyl (Bisacodyl 10 Mg Supp.Rect) 10 mg NE Q2-3DAYS PRN PRN Reason: Constipation Docusate Sodium (Docusate Sodium 100 Mg Capsule) 100 mg PO BID [facility] Last Admin: 06/23/22 08:22 Dose: 100 mg Doxycycline Hyclate (Doxycycline Hyclate 100 Mg Tablet.Orl) 100 mg PO BID [facility] Stop: 06/23/22 23:00 Last Admin: 06/23/22 09:55 Dose: 100 mg Enoxaparin Sodium (Enoxaparin 30 Mg/0.3 Ml Syringe) 30 mg SQ DAILY [facility] Last Admin: 06/23/22 08:23 Dose: 30 mg Folic Acid (Folic Acid 1 Mg Tablet) 1 mg PO QDAY [facility] Last Admin: 06/23/22 08:22 Dose: 1 mg Guaifenesin (Guaifenesin/Dextromethorphan Oral Ava) 5 ml PO Q4HP PRN PRN Reason: Cough Last Admin: 06/23/22 11:23 Dose: 5 ml Hydromorphone HCl (Hydromorphone 0.5 Mg/0.5 Ml Syringe) 0.5 mg IV Q2HP PRN; Protocol PRN Reason: Per Pain Protocol Magnesium Hydroxide (Magnesium Hydroxide 30 Ml Oral.Susp) 30 ml PO DAILYP PRN PRN Reason: Constipation Methylprednisolone Sodium Succinate (Methylprednisolone Sod Succ 125 Mg/2 Ml Vial) 62.5 mg IV Q12 [facility] Last Admin: 06/23/22 11:22 Dose: 62.5 mg Naloxone HCl (Naloxone Hcl 0.4 Mg/Ml Vial) 0.1 mg IV Q2MIN PRN PRN Reason: Opiate Reversal Ondansetron HCl (Ondansetron 4 Mg/2 Ml Vial) 4 mg IV Q6HP PRN PRN Reason: Nausea And Vomiting Oseltamivir Phosphate (Oseltamivir Phosphate 75 Mg Capsule) 75 mg PO BID [facility] Stop: 06/26/22 21:01 Last Admin: 06/23/22 08:22 Dose: 75 mg Oxycodone HCl (Oxycodone Hcl 5 Mg Tablet) 5 mg PO Q4HP PRN; Protocol PRN Reason: Per Pain Protocol Senna (Sennosides 1 Tablet) 2 tab PO HS [facility] Last Admin: 06/22/22 20:13 Dose: 2 tab Simvastatin (Simvastatin 10 Mg Tablet) 5 mg PO HS [facility] Last Admin: 06/22/22 20:13 Dose: 5 mg Sodium Chloride (0.9 % Sodium Chloride 10 Ml Syringe) 10 ml IV Q8 [facility] Last Admin: 06/23/22 13:01 Dose: 10 ml Spironolactone (Spironolactone 25 Mg Tablet) 25 mg PO DAILY [facility] Last Admin: 06/23/22 11:22 Dose: 25 mg Trazodone HCl (Trazodone Hcl 50 Mg Tablet) 50 mg PO HSP PRN PRN Reason: Insomnia Vitamin D (Vitamin D3 25 Mcg Tablet) 25 mcg PO DAILY [facility] Last Admin: 06/23/22 08:22 Dose: 25 mcg A/P Narrative A/P Narrative: Assessment: 87-year-old female with a history of hypertension, hyperlipidemia, solitary kidney with chronic kidney disease, 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 The patient also had significantly wheezing on exam, she does not have a known diagnosis of obstructive lung disease. #Bronchospasms, improving #Influenza A #Bibasilar pneumonia #Resolved acute hypoxic respiratory failure #Undifferentiated spondyloarthropathy on Remicade #Essential hypertension #Hyperlipidemia #Chronic pain on opioid Plan -Solu-Medrol 62.5 mg IV every 12 hours, discontinue prednisone for now as the patient will remain inpatient. -Scheduled DuoNeb and as needed albuterol nebs. -Tamiflu 75 mg twice daily, complete 5 days of treatment. -Completed 5 days of CAP treatment with beta-lactam and doxycycline. -Resume home spironolactone. -Continue atorvastatin for nonformulary home pravastatin, -Continue home amlodipine, hydrocodone. -Regular diet. -DVT prophylaxis: Lovenox -CODE STATUS: DNR/DNI -Disposition: Home when the patient is stable enough to take care of herself as she will not have 24-7 support at home. Hold Remicade until completely recovered from acute illness. Recommend pulmonology referral for PFTs. Time Spent With Patient Time: Total time spent is greater than 50% in coordination of care (as documented) at patient's floor/unit and/or counseling patient:
[2022-06-23] MEDS: SIMVASTATIN 10 MG TABLET PO SCH (20:26)
[2022-06-23] MEDS: SENNOSIDES 1 TABLET PO SCH (20:27)
[2022-06-24] MEDS: IPRATROPIUM/ALBUTEROL 3 ML AMPUL.NEB NEB SCH ×2 (03:13→06:57)
[2022-06-24] MEDS: SPIRONOLACTONE 25 MG TABLET PO SCH (08:36)
[2022-06-24] MEDS: DOCUSATE SODIUM 100 MG CAPSULE PO SCH (08:36)
[2022-06-24] MEDS: ATENOLOL 25 MG TABLET PO SCH (08:36)
[2022-06-24] MEDS: amLODIPine 10 MG TABLET PO SCH (08:36)
[2022-06-24] MEDS: ASPIRIN 81 MG TAB.CHEW PO SCH (08:37)
[2022-06-24] MEDS: OSELTAMIVIR PHOSPHATE 75 MG CAPSULE PO SCH (08:37)
[2022-06-24] MEDS: ENOXAPARIN 30 MG/0.3 ML SYRINGE SQ SCH (08:37)
[2022-06-24] MEDS: VITAMIN D3 25 MCG TABLET PO SCH (08:37)
[2022-06-24] MEDS: FOLIC ACID 1 MG TABLET PO SCH (08:37)
[2022-06-24] MEDS: methylPREDNISolone SOD SUCC 125 MG/2 ML VIAL IV SCH ×2 (08:38→09:42)
[2022-06-24] MEDS: 0.9 % SODIUM CHLORIDE 10 ML SYRINGE IV SCH (08:39)
[2022-06-24] MEDS: guaiFENesin/DEXTROMETHORPHAN ORAL SOL PO PRN (08:39)
[2022-06-24] MEDS ORDERED: ALBUTEROL SULFATE 60 PUFF INHALER INH PRN (09:29)
[2022-06-24] MEDS ORDERED: predniSONE 20 MG TABLET PO ONE (09:30)
--- NOTE | 2022-06-24 09:43 | Discharge Summary ---
Discharge Provider Provider IMPORTANT FOLLOW-UP INFORMATION FOR PCP: Patient information: Note initiated : 06/24/22 at 9:38 am Service Date, if different from initiated Date: [] Patient: Manuela Bower 87 y/o F admitted on 06/19/22 for Shortness of breath. 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 Chest x-ray showed mild bibasilar pneumonia. The patient also had diffuse bilateral wheezing upon presentation. The patient was treated with Tamiflu and antibiotics, systemic steroids and inhalers. The patient did have gradual improvement in her symptoms. She was weaned off oxygen supplementation. The patient remained in the hospital for a couple days of monitoring after she was off oxygen given that she lives alone and there was a safety concern about her going home alone. The patient continued to recover and felt that she was ready to go home. She is discharged on a prednisone taper, completion of 5 days of Tamiflu, and albuterol inhaler for which teaching was provided prior to discharge. I placed a referral to pulmonology to consider pulmonary function testing given the diffuse wheezing she had upon presentation. The patient does not have a personal history of tobacco use however her smoked therefore she was exposed to secondhand smoke for many years. I recommend the patient not receive her next Remicade infusion until she is back to her baseline. Physical exam Head: Atraumatic, normal inspection. Eyes: normal appearance, no scleral icterus. Neck: full ROM Respiratory: On room air, bilateral expiratory wheezing significantly improved since admission, no respiratory distress. Cardiovascular: normal rate and rhythm, S1, S2. GI/Abdominal: soft, nontender, no guarding. Extremities: full range of motion, nontender. Neurological: CN II-XII intact, intact motor, intact sensation. Psychiatric: normal mood. Skin: warm, normal color Discharge diagnosis: Acute hypoxic respiratory failure Secondary discharge diagnosis: Influenza A Community-acquired pneumonia Time Spent with Patient Time attestation: Total time spent providing and/or coordinating discharge services: Time spent: Greater than 30 minutes EXAM Constitutional Vitals: Temp Pulse Resp BP Pulse Ox O2 Del Method O2 Flow Rate 98.1 F 105 H 12 140/70 95 3 06/24/22 07:43 06/24/22 07:43 06/24/22 07:43 06/24/22 07:43 06/24/22 08:00 06/24/22 08:00 06/20/22 12:00 Discharge Plan Patient/Caregiver Discharge Instructions Activity: increase activity as tolerated Diet: Regular Diet Prescriptions: New albuterol sulfate [Ventolin HFA] 90 mcg/actuation Hfa Aerosol Inhaler 2 puff inhalation Q4HP PRN (Reason: Shortness Of Breath) Qty: 8.5 6RF dextromethorphan-guaifenesin 10-100 mg/5 mL liquid 5 ml PO Q4HP PRN (Reason: Cough) Qty: 120 0RF oseltamivir 75 mg Capsule 75 mg PO BID 3 Days Qty: 6 0RF prednisone 20 mg tablet 20 mg PO QDAY Qty: 12 0RF Rx Instructions: Take prednisone 40 mg daily for 3 days followed by prednisone 20 mg daily for 3 days followed by prednisone 10 mg daily for 3 days then discontinue. Continued omega-3 fatty acids 1,000 mg capsule 1,000 mg PO QDAY Label Comments: HOLDING FOR SURGERY cyanocobalamin (vitamin B-12) 500 mcg tablet 500 mcg PO QDAY calcium carbonate 500 mg calcium (1,250 mg) tablet 500 - 1,000 mg PO HSP PRN (Reason: Heartburn) ascorbic acid (vitamin C) 500 mg tablet 500 mg PO QDAY cholecalciferol (vitamin D3) 1,000 unit capsule 1,000 unit PO QDAY atenolol 25 mg tablet 25 mg PO QDAY folic acid 1 mg tablet 1 mg PO QDAY Qty: 30 2RF Rx Instructions: Take 1 tablet daily spironolactone 25 mg tablet 25 mg PO QDAY hydrocodone-acetaminophen 7.5-325 mg tablet 1 tab PO BID PRN (Reason: pain) Qty: 60 0RF amlodipine 10 MG tablet 10 mg PO DAILY aspirin 81 MG tablet,chewable 81 mg PO DAILY Label Comments: HOLDING FOR SURGERY pravastatin 10 MG tablet 10 mg PO HS acetaminophen 650 MG tablet extended release 650 - 1,300 mg PO BIDP PRN (Reason: Pain) coenzyme Q10 100 MG capsule 100 mg PO DAILY Label Comments: HOLDING FOR SURGERY Follow Up Plan Follow up with: Patricia Marie DNP [Primary Care Provider] - Mateus Sigala MD [Physician] - (Post hospital follow-up pulmonary function testing, the patient had diffuse wheezing during a hospitalization for influenza A and possible community-acquired pneumonia. Has a history of secondhand smoke exposure.) Patient Disposition: Home, Self-Care Overall status at discharge: patient is progressing back to baseline Discharge Orders: Discharge Order (Routine); Ordered 06/24/22 Ordered By: Navi Christiansen
== END 2022-06-24 11:45 | disposition home or self-care (01) | DRG 189 ==
LOC: ED 13:25 → MEDSUR 17:47
PROVIDERS: ADMIT Internal Medicine; ATTEND Internal Medicine